=== PATIENT | male | born 1960 | race Caucasian/White ===

== ENCOUNTER 2017-01-03 10:18 | Emergency (ER) | payer OTHER ==
[~2017-01-03] VITALS: Ht 185.4 cm; Wt 88.9 kg
[~2017-01-03 10:18] MED LIST: AMOXICILLIN500 M3 PO
[2017-01-03 10:24] VITALS: BP 123/86
--- NOTE | 2017-01-03 11:15 | ED NECK/BACK PAIN COMPLAINT ---
History of Present Illness General Chief Complaint: Low Back Pain/Injury Stated Complaint: RT BACK PAIN/ Source: patient, old records Exam Limitations: no limitations Vital Signs & Intake/Output Vital Signs & Intake/Output Vital Signs Date Time Temp Pulse Resp B/P Pulse O2 O2 Flow FiO2 Ox Delivery Rate 01/03 1024 98.1 69 20 123/86 99 Room Air Allergies Coded Allergies: No Known Allergies (05/10/16) Reconcile Medications No Known Home Medications Triage Note: PT TO ED C/O RIGHT SIDED HIP/ABD PAIN X 10-12 DAYS. STATES IT DID RADIATE TO RIGHT FLANK AT ONE POINT, BUT IT NO LONGER IS. DENIES S/S. STATES IT COMES AND GOES. Triage Nurses Notes Reviewed? yes Onset: Gradual Duration: day(s): (-), intermittent, waxing and waning Timing: recent history Quality/Severity: mild, moderate Location: paraspinous muscles Radiation: none Context: unknown Method of Injury: unknown Loss of Consciousness: no loss of consciousness Modifying Factors: rest Associated Symptoms: denies HPI: 56-year-old male with no medical history presents emergency room complaining of right-sided hip and low back pain has been intermittent in nature for the past 10-12 days better with rest worse with change in position. He is not taken anything for his symptoms, he denies urinary discomfort dysuria urgency hematuria no abdominal pain. Denies any known injury trauma or heavy lifting. No chest pain fever or chills no history of similar episodes in the past. Denies leg pain numbness or tingling (CARLOS KEVIN) Past History Travel History Traveled to [place] past 21 day No Medical History Any Pertinent Medical History? 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 No (CARLOS KEVIN) Review of Systems Review of Systems Constitutional: Reports: see HPI. All Other Systems: Reviewed and Negative Comments Review of systems: See HPI, All other systems negative. Constitutional, no chills no fever, no malaise HEENT: No visual changes no sore throat no congestion Cardiovascular: No chest pain , no palpitation Skin,no rashes, no change in skin Respiratory: No dyspnea no cough no sputum GI: No nausea no vomiting, no diarrhea : No dysuria No hematuria, no frequency, no discharge Muscle skeletal: No joint pain, no joint swelling, back pain, no neck pain, Neurologic: No numbness no headache Psych: No stress Heme/endocrine: No bruising no bleeding Immunology: No lymphadenopathy (CARLOS KEVIN) Physical Exam Physical Exam General Appearance: well developed/nourished, no apparent distress, alert, awake Neck: normal inspection, supple, full range of motion Comments: Well-developed well-nourished person in no acute distress HEENT: Normal EENT exam; PERRL, EOMI, . HEAD is atraumatic. moist mucous membranes. Neck: Supple,, normal range of motion Back: Right sided paralumbar muscle tenderness palpation no midline tenderness, no CVA tenderness. Full range of motion Cardiovascular: Regular rate and rhythms no murmurs rubs Respiratory: No respiratory distress. Patient speaking in full complete sentences. Breath sounds clear to auscultation bilaterally: NO W/R/R Abdomen: Soft, nontender nondistended, no appreciable organomegaly. Normal bowel sounds. No rebound/guarding, No appreciable enlargement of the abdominal aorta, No ascites. Extremity: No edema, full range of motion of extremities, normal and equal pulses bilaterally, 5 out of 5 strength noted to bilateral upper and lower extremities negative straight leg raise bilaterally Neuro: Alert oriented x3, motor sensory normal, There were no obvious focal neurologic abnormalities. Skin: No appreciable rash on exposed skin, skin is warm and dry. Psych: Mood and affect is normal, memory and judgment is normal. (CARLOS KEVIN) Progress Differential Diagnosis: cauda equina syn, herniated disc, myofascial strain, pyelo/UTI, sciatica, spinal cord inj, thoracic outlet syn, T/L spine injury, ureterolithiasis Plan of Care: Orders Procedure Date/time Status URINALYSIS 01/03 1127 Complete Laboratory Tests 01/03/17 1131: Urine Color STRAW, Urine Clarity CLEAR, Urine pH 7.0, Ur Specific [place] <= 1.005, Urine Protein NEG, Urine Ketones NEG, Urine Nitrite NEG, Urine Bilirubin NEG, Urine Urobilinogen 0.2, Ur Leukocyte Esterase NEG, Ur Microscopic EXAM NOT REQUIRED, Urine Hemoglobin NEG, Urine Glucose NEG I discussed with the patient at length all of their results. I had an extensive conversation regarding need for close follow up with their primary care physician this week as well as return precautions. I answered all of their questions, they feel comfortable with the plan and follow-up care. I discussed the medications that they will receive with the patient. I gave them signs and symptoms that could indicate an adverse reaction. I have advised them to limit their activities until they can see how they respond to the medication. (CORONA CALDERON,CARLOS) Diagnostic Imaging: Viewed by Me: Radiology Read. Discussed w/RAD: Radiology Read. Radiology Impression: PATIENT: CHULA XIONG PRESENT AGE: 56 PATIENT ACCOUNT NO: [id number] : 62 LOCATION: [facility] ORDERING PHYSICIAN: CARLOS CALDERON SERVICE DATE: 01/03/17 EXAM TYPE: RAD - XRY-LUMBOSACRAL SPINE AP & LAT EXAMINATION: XR LUMBOSACRAL SPINE CLINICAL INFORMATION: Right lower back pain. COMPARISON: CT abdomen and pelvis 2009. TECHNIQUE: AP and lateral views of the lumbosacral spine were obtained. FINDINGS: The vertebral bodies and posterior elements are normal aside from some minimal osteophyte formation at the endplates, especially at L2-L3. The disc spaces are preserved and the vertebral alignment is normal. The paraspinal soft tissues are normal. IMPRESSION: 1. Minimal osteophyte formation. 2. No significant abnormality is felt to be present. DICTATED BY: SYL NESS MD DATE/TIME DICTATED:01/03/171200 SILK SPOOLER:JENNIFER DATE/TIME TRANSCRIBED:01/03/171200 CONFIDENTIAL, DO NOT COPY WITHOUT APPROPRIATE AUTHORIZATION. <Electronically signed in Other Vendor System> SIGNED BY: SYL NESS MD 01/03/171208, PATIENT: CHULA XIONG PRESENT AGE: 56 PATIENT ACCOUNT NO: [id number] : 64 LOCATION: [facility] ORDERING PHYSICIAN: CARLOS CALDERON SERVICE DATE: 01/03/17 EXAM TYPE: RAD - XRY-AP PELVIS EXAMINATION: XR PELVIS CLINICAL INFORMATION: Right hip and back pain. COMPARISON: None TECHNIQUE: AP view of the pelvis. FINDINGS: There is some minimal narrowing of the superior aspect of the right hip joint with some supra-acetabular sclerosis The bones and soft tissues are otherwise normal. No fracture. Sacroiliac and hip joints are normal. Pubic symphysis is normal. No abnormal soft tissue calcifications. Phleboliths are noted in the pelvis. IMPRESSION: Minimal degenerative change right hip. DICTATED BY: SYL NESS MD DATE/TIME DICTATED:01/03/171201 SILK SPOOLER:JENNIFER DATE/TIME TRANSCRIBED:01/03/171201 CONFIDENTIAL, DO NOT COPY WITHOUT APPROPRIATE AUTHORIZATION. <Electronically signed in Other Vendor System> SIGNED BY: SYL NESS MD 01/03/17 1222 (CARLOS KEVIN) Departure Departure Time of Disposition: 1219 Disposition: HOME OR SELF CARE Condition: Stable Clinical Impression Primary Impression: Lumbar strain Referrals: ROSY BURGOS,ZACK Gonzalez (PCP/Family) Additional Instructions: rest, interchange ice and heat. tylenolor motrin as needed. follow up with your primary care physician if symptoms persist. return at anytime sooner with any concerns Departure Forms: Customer Survey General Discharge Information Prescriptions: Current Visit Scripts No Known Home Medications (CARLOS KEVIN) PA/SCOURING MACHINE OPERATOR Co-Sign Statement Statement: ED Attending supervision documentation- [] I saw and evaluated the patient. I have also reviewed all the pertinent lab results and diagnostic results. I agree with the findings and the plan of care as documented in the PA's/SCOURING MACHINE OPERATOR's documentation. [x] I have reviewed the ED Record and agree with the PA's/SCOURING MACHINE OPERATOR's documentation. [] Additions or exceptions (if any) to the PAs/SCOURING MACHINE OPERATOR's note and plan are summarized below: [] (CHULA CANTU DO
--- NOTE | 2017-01-03 12:09 | RADIOLOGY REPORT ---
EXAMINATION: XR LUMBOSACRAL SPINE CLINICAL INFORMATION: Right lower back pain. COMPARISON: CT abdomen and pelvis 11/21/2009. TECHNIQUE: AP and lateral views of the lumbosacral spine were obtained. FINDINGS: The vertebral bodies and posterior elements are normal aside from some minimal osteophyte formation at the endplates, especially at L2-L3. The disc spaces are preserved and the vertebral alignment is normal. The paraspinal soft tissues are normal. IMPRESSION: 1. Minimal osteophyte formation. 2. No significant abnormality is felt to be present.
--- NOTE | 2017-01-03 12:22 | RADIOLOGY REPORT ---
EXAMINATION: XR PELVIS CLINICAL INFORMATION: Right hip and back pain. COMPARISON: None TECHNIQUE: AP view of the pelvis. FINDINGS: There is some minimal narrowing of the superior aspect of the right hip joint with some supra-acetabular sclerosis The bones and soft tissues are otherwise normal. No fracture. Sacroiliac and hip joints are normal. Pubic symphysis is normal. No abnormal soft tissue calcifications. Phleboliths are noted in the pelvis. IMPRESSION: Minimal degenerative change right hip.
== END 2017-01-03 12:28 ==
LOC: ERH 10:18
DX: S39.012A Strain of muscle, fascia and tendon of lower back, initial encounter (principal); X58.XXXA Exposure to other specified factors, initial encounter; Y93.9 Activity, unspecified; Y92.9 Unspecified place or not applicable
CPT/HCPCS: 72100; 72170; 81003